=== PATIENT | male | born 1965 | race Caucasian/White ===

== ENCOUNTER 2018-07-11 10:31 | Inpatient (IN) ==
[2018-07-11] MEDS ORDERED: Sodium Chloride 0.9% 1,000 ML PRIMARY IV ONE (10:51)
[2018-07-11] MEDS ORDERED: ceFAZolin Inj 2gm (Premix) 2 GM/50 ML BAG IV ONE (10:54)
[2018-07-11 11:20] LABS: BASOPHILS # (AUTO) 0.03 10*3/UL; BASOPHILS % (AUTO) 0.3 % (0-1); EOSINOPHILS # (AUTO) 0.11 10*3/UL; EOSINOPHILS % (AUTO) 0.9 % (0-8); Hematocrit [HCT] 47.6 % (42.0-52.0); Hemoglobin [HGB] 16.5 g/dL (14.0-18.0); LYMPHOCYTES # (AUTO) 2.14 10*3/uL; MEAN CORPUSCULAR HEMOGLOBIN 32.4 PG (27-31); MEAN CORPUSCULAR HGB CONC 34.7 g/dL (33-37); MEAN CORPUSCULAR VOLUME 93.5 FL (80-90); MEAN PLATELET VOLUME 10.4 FL (7.4-12.2); MONOCYTES # (AUTO) 0.97 10*3/UL (0.3-0.8); MONOCYTES % (AUTO) 8.2 % (5-15); NEUTROPHILS # (AUTO) 8.49 10*3/UL; RED BLOOD COUNT 5.09 10^6/uL (4.70-6.10)
[2018-07-11 11:23] LABS: PLATELET MORPHOLOGY COMMENT NORMAL MORPHOLOGY (NORM); RBC MORPHOLOGY COMMENT NORMAL MORPHOLOGY (NORM); WBC MORPHOLOGY COMMENT NORMAL MORPHOLOGY (NORM)
[2018-07-11 11:34] LABS: BLOOD UREA NITROGEN 15 mg/dL (7-22); BUN/CREATININE RATIO 18.75 (6-20); SERUM ALBUMIN 4.3 g/dL (3.5-4.8)
--- NOTE | 2018-07-11 12:27 | PDOC ---
Lower Extremity Problem HPI - General Chief Complaint: Lower Extremity Problem/Injury Stated Complaint: wounds left foot Date Seen by Provider: 07/11/18 Time Seen by Provider: 10:40 Source: POSITIVE: Patient Exam Limitations: POSITIVE: No limitations Nurse's Notes Reviewed & Considered: Yes - History of Present Illness Initial Comments: The patient is a 53-year-old male. He has a history of diabetes mellitus for the last 8 years with peripheral neuropathy. He takes metformin 500 mg daily. 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 He states that last night when he took off his left boot he noticed that he had a shallow ulcer over the distal sole of this left foot and some blisters to the palmar surface of the left first second and third toes. He has erythema in this area and over the distal third of the foot. He states he does not have a great deal of pain, but he does state that his sensation is prominently reduced in his feet. Patient went to the walk-in clinic this morning, who sent him to the emergency room for further evaluation. Body Location Affected: REPORTS: Lower Extremity (L) Timing: REPORTS: Gradual Duration: <24 hours Severity: Moderate Recent Injury: REPORTS: No Context of Injury: REPORTS: Prolonged Pressure on Ext (Possibly from wearing his boots while working as a marsh buggy operator) Quality: REPORTS: "Pain" (Patient does not have a great deal of pain around the lesions of his foot; history of diabetic neuropathy.) Modifying Factors: REPORTS: Nothing Exacerbates. DENIES: Walking, Movement, Rest, Ice, Nothing Relieves, Other Associated Symptoms: DENIES: Chest Pain, Shortness of Breath, Rapid Heart Rate, Fainting, Other Similar Symptoms Previously: No Recent Care Received: REPORTS: Denies Any Prior Injuries Related to Current Complaint?: No - Patient Home Medications Home Medications: Home Medications metformin 500 mg tablet 500 mg PO QDAY 07/11/18 - Patient Allergies Allergies/Adverse Reactions: Allergies 3 Allergy/AdvReac Type Severity Reaction Status Date / Time Penicillins Allergy RASH Verified 07/11/18 10:40 Past Medical History - heen HEENT History: Cataracts Cardiovascular History: Denies History Respiratory History: Denies History Gastrointestinal History: Denies History Genitourinary History: Denies History Endocrine History: Type 2 Diabetes (diet) Musculoskeletal History: Back Pain, Back Injury, Joint Pain Prosthesis or Implant: No Neurological History: Denies History Blood Disorders: Denies History Psychiatric History: Denies History History of Sexually Transmitted Diseases: No Male Reproductive History: Denies History Cancer History: Denies History In Past Year Been Physically Harmed or Verbally Threatened: No History of MDRO: No History of Other Communicable Diseases: No Tobacco Use: Never Smoker Alcohol Use: Occasionally Type of alcohol normally used: Beer In the Past 12 Months, Have Used or Abuse Any Substance: None Previous Surgical History: Yes Type / Date of Surgery: APPENDECTOMY Anesthesia Reactions: No Malignant Hyperthermia: No Significant Family History: Cancer Past Medical History Reviewed: Reviewed - No Changes ROS - Limitations ROS Limitations: No Limitations Constitution: REPORTS: Denies Symptoms Cardiovascular: REPORTS: Denies Cardiac Symptoms Respiratory: REPORTS: Denies Resp Symptoms Neurological: REPORTS: Denies Neuro Symptoms Gastrointestinal: REPORTS: Denies GI Symptoms Endocrine: REPORTS: Denies Symptoms Musculoskeletal: REPORTS: Other (Diabetic foot ulcers and cellulitis left foot as above; see diagram) Genitourinary: REPORTS: Denies Symptoms Eyes: REPORTS: Denies Symptoms ENT: REPORTS: Denies Symptoms Skin: REPORTS: Other (Diabetic foot ulcer and cellulitis left foot as above; see diagram) Lympathic: REPORTS: Denies Lympathic Symptoms Immunologic: POSITIVE: Denies Symptoms Psychiatric: POSITIVE: Denies Psych Symptoms Lower Ext Problem Exam - General Appearance General Appearance: POSITIVE: Alert, Cooperative, No Acute Distress. NEGATIVE: No Evidence of Trauma - Extremities Lower Extremity: POSITIVE: Tenderness, Swelling, Other (Superficial diabetic foot ulcer distal aspect of the plantar surface of left foot and developing ulcers over the plantar aspects of the left first second and third toes with some dark discoloration of the distal aspects of these toes and erythema distal third of left foot.) Joint Exam: POSITIVE: Joints Normal, Normal ROM, Normal Gait, Normal Weight Bearing Vascular: POSITIVE: No Vascular Compromise, Full Pulses, Equal Pulses - Neuro / Psych Neuro/Psych: POSITIVE: Sensation Normal, Motor Normal, Oriented to Person, Oriented to Place, Oriented to Time, 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 Nml, Pharynx Inspect. Nml, PERRL, EOMI - Respiratory / CVS Respiratory / CVS: POSITIVE: No Respiratory Distress, Breath Sounds Normal, Regular Rate/Rhythm, Heart Sounds Normal Peripheral Pulses: Radial (R): 2+, Radial (L): 2+, Dorsalis-pedis (R): 2+, Dorsalis-pedis (L): 2+ - Abdomen Abdomen: Soft: (All Quadrants), Normal Bowel Sounds: (All Quadrants), Denies Tenderness: (All Quadrants), No Splenomegaly: (All Quadrants), No Hepatomegaly: (All Quadrants), No Guarding: (All Quadrants), No Rebound: (All Quadrants), No Palpable Pulse: (All Quadrants), No Palpabale Mass: (All Quadrants), No Distention: (All Quadrants), No Rigidity: (All Quadrants) Images - Lower Extremities Feet: 1 - Shallow ulcer 2 - Shallow ulcers with blistering 3 - Erythema and swelling 4 - Erythema and swelling Lower Ext Problem Progress - Results Reviewed by me Lab Results Reviewed by Me: Yes (blood cultures drawn) CBC and BMP: 07/11/18 11:00 07/11/18 11:00 Lab Results:: Laboratory Results 3 07/11/18 07/11/18 07/11/18 11:00 11:00 11:00 WBC 11.79 H RBC 5.09 Hgb 16.5 Hct 47.6 MCV 93.5 H MCH 32.4 H MCHC 34.7 RDW Std Deviation 43.0 RDW Coeff of Rasheed 13.0 Plt Count 172 MPV 10.4 Immature Gran % (Auto) 0.4 Neut % (Auto) 72.0 Lymph % (Auto) 18.2 [place] % (Auto) 8.2 Eos % (Auto) 0.9 Baso % (Auto) 0.3 Immature Gran # (Auto) 0.05 Neut # (Auto) 8.49 Lymph # (Auto) 2.14 [place] # (Auto) 0.97 H Eos # (Auto) 0.11 Baso # (Auto) 0.03 WBC Morphology Comment Normal morphology Plt Morphology Comment Normal morphology RBC Morph Comment Normal morphology Sodium 137 Potassium 4.5 Chloride 100 Carbon Dioxide 26 Anion Gap 11 BUN 15 Creatinine 0.8 Estimated GFR > 60 BUN/Creatinine Ratio 18.75 Glucose 271 H Calculated Osmolality 294.0 H Lactic Acid Calcium 9.0 Total Bilirubin 1.0 AST 24 ALT 28 Alkaline Phosphatase 137 H C-Reactive Protein 4.3 H Total Protein 8.2 H Albumin 4.3 Globulin 3.9 Albumin/Globulin Ratio 1.10 L 3 07/11/18 11:11 WBC RBC Hgb Hct MCV MCH MCHC RDW Std Deviation RDW Coeff of Rasheed Plt Count MPV Immature Gran % (Auto) Neut % (Auto) Lymph % (Auto) [place] % (Auto) Eos % (Auto) Baso % (Auto) Immature Gran # (Auto) Neut # (Auto) Lymph # (Auto) [place] # (Auto) Eos # (Auto) Baso # (Auto) WBC Morphology Comment Plt Morphology Comment RBC Morph Comment Sodium Potassium Chloride Carbon Dioxide Anion Gap BUN Creatinine Estimated GFR BUN/Creatinine Ratio Glucose Calculated Osmolality Lactic Acid 1.3 Calcium Total Bilirubin AST ALT Alkaline Phosphatase C-Reactive Protein Total Protein Albumin Globulin Albumin/Globulin Ratio - Patient's Progress Pain Medication Addressed: POSITIVE: Patient Refused School/Work Release Addressed: POSITIVE: Not Applicable Re-Examine Time: 12:15 Re-Examine Comment: Patient advised that his interest would best be served with hospitalization. Patient given 2 g of Ancef IV in the emergency room. Case discussed with hospitalist. Status: POSITIVE: Unchanged, Re-Examined - Consult Counseled: POSITIVE: Patient, RE: Lab Results, RE: DX, RE: Need for F/U Patient Care Time - Estimated PCT Patient Care Time (In Minutes): 50 Vital Signs - Recent Vital Signs Vital Signs: Vital Signs (Last 8 hours) Temp Pulse Resp BP Pulse Ox 07/11/18 10:31 98.8 F 89 16 145/96 95 - VS Reviewed Vital Signs Reviewed: Yes Discharge Clinical Impression: Foot ulcer due to secondary DM, Cellulitis and abscess of foot Condition: Stable Follow Up With: NONE,NONE [Primary Care Provider] - Date Decision to Admit to Inpatient: 07/11/18 Time Decision to Admit to Inpatient: 12:05
[2018-07-11 12:37] LABS: HEMOGLOBIN A1C 9.81 % (4.2-6.0)
[2018-07-11] MEDS ORDERED: Cefepime Inj 2 GM in Sodium Chloride 0.9% 100 ML IV SCH (12:45)
--- NOTE | 2018-07-11 12:48 | PDOC ---
HPI - History of Present Illness History of Present Illness: This very nice 53-year-old gentleman with past medical history significant for diabetes for the last 8 years and peripheral neuropathy [place]. 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 he states that last night when he took his boot off the noted ulcers on the left side of his foot underneath his foot on the palmar surface and second and third toes and first toes with some redness and discoloration no pain Past Medical History Medical History: Diabetes Tobacco Use: Never Smoker Do you dip or chew tobacco: Yes In the Past 12 Months, Have Used or Abuse Any of the Following Substance: None Alcohol Use: None Medication / Allergies Home Medications: Home Medications 3 Medication Instructions Recorded Confirmed Type metformin 500 mg tablet 500 mg PO QDAY 07/11/18 07/11/18 History Allergies/Adverse Reactions: Allergies 3 Allergy/AdvReac Type Severity Reaction Status Date / Time Penicillins Allergy RASH Verified 07/11/18 10:40 Review of Systems - Review of Systems All Systems: Reviewed & No Additional Complaints Except as Stated - Constitutional Constitutional: DENIES: Weight Gain, Fever / Chills, Night Sweats - Respiratory Respiratory: DENIES: Negative System Review, Cough, Sputum, Dyspnea At Rest, Dyspnea with Exertion, Pleuritic Pain, Hemoptysis, Wheezing, Other, See HPI - Cardiovascular Cardiovascular: DENIES: Negative System Review, Chest Pain, Edema, Syncope, Palpitations, Orthopnea, Paroxysmal Nocturnal Dyspnea, Other, See HPI - Gastrointestinal Gastrointestinal / Abdominal: DENIES: Negative System Review, Nausea, Vomiting, Diarrhea, Constipation, Abdominal Pain, Bloody Stool, Poor Appetite, Heartburn, Regurgitation, Bloating, Lactose Intolerance, Melena, Bright Red Blood per Rectum, Other, See HPI Exam - Vitals Vital Signs: Vital Signs Temperature 98.8 F Temperature Source Temporal Artery Scan Pulse Rate [Pulse Oximeter 89 Right] Respiratory Rate 16 Blood Pressure [Left Arm] 145/96 Pulse Ox 95 Oxygen Delivery Method Room Air Height 5 ft 9 in Weight 221 lb - General General Appearance: No Acute Distress, Cooperative - Head Head Exam: Normal Inspection, Normocephalic, Atraumatic - Eye Eye Exam: POSITIVE: Normal Appearance, PERRL, EOMI, No Scleral Icterus - Neck Neck Exam: Normal Inspection, Full ROM, No Tenderness, No Lymphadenopathy, No Thyromegaly, JVP is not Raised - Respiratory Respiratory Exam: POSITIVE: Clear to Auscultation - Bilaterally, Breathing Non Labored, Normal To Percussion, Normal to Percussion and Palpation - Cardiovascular Cardiovascular Exam: POSITIVE: RRR, No Murmur, No Clicks, No Gallops, No Rubs, PMI Non-Displaced - GI/Abdominal GI/Abdominal Exam: POSITIVE: Normal Bowel Sounds, Non Tender, Non Distended, Soft, No Masses, No Hepatomegaly, No Splenomegaly, No Organomegaly - Extremities Additional Extremities Exam Details: Left foot plantar area big blister which was peeled off it looks like first second and third toe with erythema and some discoloration - Neurological Neurological Exam: POSITIVE: Alert, Oriented x 3, No Facial Droop, Speech Intact / Clear Results - Labs CBC and BMP: 07/11/18 11:00 07/11/18 11:00 Assessment and Plan - Patient Problems (1) Foot ulcer due to secondary DM Current Visit: Yes Status: Acute Comment: We'll start patient on cefepime and vancomycin we need to cover Pseudomonas blood cultures were obtained he did receive 2 g of Ancef from the ER physician did order a sedimentation rate also x-rays of his foot and consult with Dr. Shane orthopedic surgery I spoke to him on the phone personally patient has good the pedal pulses Code(s): E13.621 - Other specified diabetes mellitus with foot ulcer; L97.509 - Non-pressure chronic ulcer of other part of unspecified foot with unspecified severity
[2018-07-11] MEDS ORDERED: DEXTROSE 50%-WATER SYRINGE 50 ML SYRINGE IVP PRN (12:55)
[2018-07-11] MEDS ORDERED: DEXTROSE 31 GM GEL PO PRN (12:55)
[2018-07-11] MEDS ORDERED: Glucagon Inj Vial 1 MG/ML VIAL IM PRN (12:55)
[2018-07-11] MEDS ORDERED: CALCIUM CARBONATE 500 MG (TUMS) CHEWABLE TABLET PO PRN (12:55)
[2018-07-11] MEDS ORDERED: DOCUSATE 100 MG CAPSULE PO PRN (12:55)
[2018-07-11] MEDS ORDERED: LIDOCAINE W/ SODIUM BICARB 0.5 ML SYR SUBD PRN (12:55)
[2018-07-11] MEDS ORDERED: ONDANSETRON 4 MG/2 ML VIAL IVP PRN (12:55)
[2018-07-11] MEDS ORDERED: Insulin Sliding Scale Protocol SUBCUT PRN (12:55)
[2018-07-11] MEDS ORDERED: MORPHINE SULFATE 2 MG/1 ML IVP PRN (12:55)
[2018-07-11] MEDS ORDERED: ACETAMINOPHEN 325 MG TABLET PO PRN (12:55)
[2018-07-11] MEDS: Lactated Ringers 1,000 ML PRIMARY IV SCH ×2 (13:40→20:34)
[2018-07-11] MEDS: HEPARIN 5000 UNIT/1 ML SUBCUT SCH ×2 (13:40→20:30)
--- NOTE | 2018-07-11 13:40 | DI ---
EXAM: XR Left Foot Complete, 3 or More Views CLINICAL HISTORY: Patient states sudden onset infection to the left foot. Swelling, redness, and peeling to the entire foot and ankle. There is a 2 inch oozing sore across the distal plantar surface of the foot and a black sore on the plantar surface of the 1st toe. 3 images. No priors.: TECHNIQUE: Frontal, lateral and oblique views of the left foot. COMPARISON: No relevant prior studies available. FINDINGS: Bones/joints: No evidence of osteomyelitis. Osseous structures intact. No acute fracture. No dislocation. Soft tissues: Soft tissue swelling. No radiopaque foreign body. IMPRESSION: 1. Soft tissue swelling. 2. No evidence of osteomyelitis. Osseous structures intact.
--- NOTE | 2018-07-11 14:13 | CONSULT ---
Consult Note - Consult Consult Date: 07/11/18 Reason for Consult: Orthopedic Consult Requesting Physician: Dr. Salas Primary Care Provider: NONE NONE - History of Present Illness History of Present Illness: Patient is a 53-year-old male came into the emergency room this morning when he took off his shoe last night and apparently with a sock noted that he had redness swelling of the foot and toes and had pulled off some skin on the bottom aspect of his foot apparently patient is a [id number] diabetic who does not check his blood sugars and does not recall the last time he checked them nor what level they usually run. Patient states he has decreased sensation on the distal aspect of the lower extremity about the mid 3/ 4 foot going distal bilaterally symmetric stocking glove distribution. Patient states he does not check his feet on a regular basis. Patient denies fevers chills or night sweats. Patient denies any shortness of breath or chest pain. He also denies any appetite changes. Past Medical History Medical History: Diabetes Tobacco Use: Never Smoker Do you dip or chew tobacco: Yes In the Past 12 Months, Have Used or Abuse Any of the Following Substance: None Alcohol Use: None Medication / Allergies Home Medications: Home Medications 3 Medication Instructions Recorded Confirmed Type metformin 500 mg tablet 500 mg PO QDAY 07/11/18 07/11/18 History Allergies/Adverse Reactions: Allergies 3 Allergy/AdvReac Type Severity Reaction Status Date / Time Penicillins Allergy RASH Verified 07/11/18 13:03 Exam - Vitals Vital Signs: Vital Signs Temperature 97.6 F Temperature Source Temporal Artery Scan Pulse Rate [Pulse Oximeter 91 Right] Pulse Rate 90 Respiratory Rate 18 Blood Pressure [Left Arm] 149/88 Blood Pressure 142/88 Pulse Ox 97 Oxygen Delivery Method Room Air Height 5 ft 9 in Weight 100.062 kg Examination shows that the patient is a well-developed well-nourished male in no apparent distress he is alert and oriented 3. Patient is generally coordinated with appropriate affect. Examination of the left foot show that the patient has some redness to the toes including the great toe to a mild extent but more so the second and third and a portion of the fourth toe with some deep discoloration on the tips of the toes on the great toe second third and portion of the fourth also has similar changes in the sole in the area of the ball of the foot. There is absent skin with superficial dermal layer absent about 7 cm x 3 cm. There is still skin covering tissue are going more proximally to about the midportion of the arch with a little discoloration to the tissues on the plantar aspect. This is mostly a faint blue hue. Several of the small blisters over the toe region particularly when on the great toe at the tip. He has no pain with palpation diffusely he complains of decreased sensation in the feet about mid to upper third of the foot distally seems to be symmetric with the other side there is no active issues with the other foot. He has good motion of the toes foot and ankle otherwise. A mild amount of swelling. The area where the tissue is red this blanches well and has good refill. He has good pulses with brisk refill. I don't feel any active fluctuance of the current time. Radiographs of the foot show no evidence of fractures dislocations is no active gas in the soft tissues or evidence of osteomyelitis. Laboratory Results 07/11/18 07/11/18 07/11/18 Range/Units 11:00 11:00 11:00 WBC 11.79 H (4.8-10.8) 10^3/uL RBC 5.09 (4.70-6.10) 10^6/uL Hgb 16.5 (14.0-18.0) g/dL Hct 47.6 (42.0-52.0) % MCV 93.5 H (80-90) FL MCH 32.4 H (27-31) PG MCHC 34.7 (33-37) g/dL RDW Std Deviation 43.0 (39-50) fL RDW Coeff of Rasheed 13.0 (11.5-14.5) % Plt Count 172 (140-350) 10*3/uL MPV 10.4 (7.4-12.2) FL Immature Gran % (Auto) 0.4 (0-5) % Neut % (Auto) 72.0 (50-80) % Lymph % (Auto) 18.2 (10-50) % [place] % (Auto) 8.2 (5-15) % Eos % (Auto) 0.9 (0-8) % Baso % (Auto) 0.3 (0-1) % Immature Gran # (Auto) 0.05 10*3/UL Neut # (Auto) 8.49 10*3/UL Lymph # (Auto) 2.14 10*3/uL [place] # (Auto) 0.97 H (0.3-0.8) 10*3/UL Eos # (Auto) 0.11 10*3/UL Baso # (Auto) 0.03 10*3/UL WBC Morphology Comment Normal morphology (NORM) Plt Morphology Comment Normal morphology (NORM) RBC Morph Comment Normal morphology (NORM) Sodium 137 (135-145) meq/L Potassium 4.5 (3.8-5.2) meq/L Chloride 100 (98-112) meq/L Carbon Dioxide 26 (23-33) meq/L Anion Gap 11 (5-20) BUN 15 (7-22) mg/dL Creatinine 0.8 (0.70-1.50) mg/dL Estimated GFR > 60 (>60 ml/min/1.73m(2)) BUN/Creatinine Ratio 18.75 (6-20) Glucose 271 H (78-110) mg/dL Mean Blood Glucose mg/dL Hemoglobin A1c (4.2-6.0) % Calculated Osmolality 294.0 H (267-292) mOsm/kg Lactic Acid (0.70-2.10) MMOL/L Calcium 9.0 (8.7-10.7) mg/dL Total Bilirubin 1.0 (0.3-1.2) mg/dL AST 24 (21-57) IU/L ALT 28 (21-72) IU/L Alkaline Phosphatase 137 H (38-126) IU/L Troponin I (< 0.040) ng/mL C-Reactive Protein 4.3 H (0.0-0.9) mg/dL Total Protein 8.2 H (6.1-8.0) g/dL Albumin 4.3 (3.5-4.8) g/dL Globulin 3.9 (2.50-4.10) g/dL Albumin/Globulin Ratio 1.10 L (1.3-2.0) mg/g 07/11/18 07/11/18 07/11/18 Range/Units 11:00 11:00 11:11 WBC (4.8-10.8) 10^3/uL RBC (4.70-6.10) 10^6/uL Hgb (14.0-18.0) g/dL Hct (42.0-52.0) % MCV (80-90) FL MCH (27-31) PG MCHC (33-37) g/dL RDW Std Deviation (39-50) fL RDW Coeff of Rasheed (11.5-14.5) % Plt Count (140-350) 10*3/uL MPV (7.4-12.2) FL Immature Gran % (Auto) (0-5) % Neut % (Auto) (50-80) % Lymph % (Auto) (10-50) % [place] % (Auto) (5-15) % Eos % (Auto) (0-8) % Baso % (Auto) (0-1) % Immature Gran # (Auto) 10*3/UL Neut # (Auto) 10*3/UL Lymph # (Auto) 10*3/uL [place] # (Auto) (0.3-0.8) 10*3/UL Eos # (Auto) 10*3/UL Baso # (Auto) 10*3/UL WBC Morphology Comment (NORM) Plt Morphology Comment (NORM) RBC Morph Comment (NORM) Sodium (135-145) meq/L Potassium (3.8-5.2) meq/L Chloride (98-112) meq/L Carbon Dioxide (23-33) meq/L Anion Gap (5-20) BUN (7-22) mg/dL Creatinine (0.70-1.50) mg/dL Estimated GFR (>60 ml/min/1.73m(2)) BUN/Creatinine Ratio (6-20) Glucose (78-110) mg/dL Mean Blood Glucose 240.673 mg/dL Hemoglobin A1c 9.81 H (4.2-6.0) % Calculated Osmolality (267-292) mOsm/kg Lactic Acid 1.3 (0.70-2.10) MMOL/L Calcium (8.7-10.7) mg/dL Total Bilirubin (0.3-1.2) mg/dL AST (21-57) IU/L ALT (21-72) IU/L Alkaline Phosphatase (38-126) IU/L Troponin I < 0.012 (< 0.040) ng/mL C-Reactive Protein (0.0-0.9) mg/dL Total Protein (6.1-8.0) g/dL Albumin (3.5-4.8) g/dL Globulin (2.50-4.10) g/dL Albumin/Globulin Ratio (1.3-2.0) mg/g Results - Labs CBC and BMP: 07/11/18 11:00 07/11/18 11:00 Assessment and Plan - Assessment / Plan Additional Assessment/Plan Details: Impression: [id number] diabetes poorly controlled Blister and probable early ulcer formation left foot diffusely in various areas. Plan: Patient was started on IV antibiotics to have appropriate coverage for foot bacteria and multi-microbial sources. I think keeping weight off the foot and keeping a light dressing on this and begin very conservative wound care at the current time would be helpful to allow this to declare itself. Discussed with the patient the possibility of progression of this and need for some advances surgery to include potential debridement or amputation. We discussed the patient's current condition and clinical findings as it pertains to the current situation. Surgical versus nonsurgical options risks and benefits were discussed and reviewed. Options moving forward include but are not limited to continued choice to live with their current condition; evaluate their current condition further with imaging studies and/or diagnostic testing, etc.; treat problem/problems with surgical versus nonsurgical methods. The patient demonstrates a clear understanding of our discussion. All questions were answered. Surgical versus nonsurgical options risks and benefits were Discussed and reviewed. Risks include but are not limited to bleeding, infection, neurovascular damage, wound problems, deep vein thromboses, pulmonary embolism, need for further surgery, and loss of life and limb. Certainly any surgical procedure may not improve symptoms and potentially could makes symptoms worse. There are no guarantees implied with the discussion of surgical treatment. All questions were answered and the patient wishes to proceed with surgical treatment. - Time/Visit Time Spent With Patient: Greater Than 35 Mint[address]
[2018-07-11] MEDS: Insulin Lispro Flexpen 300 UNIT/3 ML INSULN.PEN SUBCUT SCH ×2 (14:22→16:31)
[2018-07-11] MEDS: Cefepime Inj 2 GM in Sodium Chloride 0.9% 100 ML IV SCH (14:30)
[2018-07-12] MEDS: Cefepime Inj 2 GM in Sodium Chloride 0.9% 100 ML IV SCH ×2 (01:42→14:07)
[2018-07-12] MEDS: HEPARIN 5000 UNIT/1 ML SUBCUT SCH ×3 (04:09→21:27)
[2018-07-12 04:41] LABS: BASOPHILS # (AUTO) 0.02 10*3/UL; BASOPHILS % (AUTO) 0.3 % (0-1); EOSINOPHILS # (AUTO) 0.19 10*3/UL; EOSINOPHILS % (AUTO) 2.6 % (0-8); Hematocrit [HCT] 42.6 % (42.0-52.0); Hemoglobin [HGB] 14.8 g/dL (14.0-18.0); MEAN CORPUSCULAR HEMOGLOBIN 32.3 PG (27-31); MEAN CORPUSCULAR HGB CONC 34.7 g/dL (33-37); MEAN PLATELET VOLUME 10.5 FL (7.4-12.2); MONOCYTES # (AUTO) 0.69 10*3/UL (0.3-0.8); MONOCYTES % (AUTO) 9.4 % (5-15); NEUTROPHILS % (AUTO) 58.7 % (50-80); PLATELET MORPHOLOGY COMMENT NORMAL MORPHOLOGY (NORM); RBC MORPHOLOGY COMMENT NORMAL MORPHOLOGY (NORM); RED BLOOD COUNT 4.58 10^6/uL (4.70-6.10); WBC MORPHOLOGY COMMENT NORMAL MORPHOLOGY (NORM)
[2018-07-12] MEDS: Insulin Lispro Flexpen 300 UNIT/3 ML INSULN.PEN SUBCUT SCH ×3 (07:00→15:55)
[2018-07-12] MEDS: Lactated Ringers 1,000 ML PRIMARY IV SCH (08:26)
[2018-07-12] MEDS ORDERED: metFORMIN 500 MG TABLET PO SCH (09:00)
--- NOTE | 2018-07-12 09:35 | ORTHO.PROG ---
Last Taken Vital Signs: Vital Signs - Last Taken Temperature 98 F 07/12/18 06:25 Pulse Rate 80 07/12/18 06:25 Respiratory Rate 18 07/12/18 06:25 Blood Pressure 150/81 07/12/18 06:25 Pulse Ox 94 07/12/18 06:25 Subjective: Patient states he has no pain in the left foot at the current time feels is doing better Objective: Examination of the foot shows that he still has some redness along the lesser toes and blisters on the great toe and on the plantar aspect of the foot though tissue looks healthier marginally. Laboratory Results 07/11/18 07/11/18 07/11/18 Range/Units 11:00 11:00 11:00 WBC 11.79 H (4.8-10.8) 10^3/uL RBC 5.09 (4.70-6.10) 10^6/uL Hgb 16.5 (14.0-18.0) g/dL Hct 47.6 (42.0-52.0) % MCV 93.5 H (80-90) FL MCH 32.4 H (27-31) PG MCHC 34.7 (33-37) g/dL RDW Std Deviation 43.0 (39-50) fL RDW Coeff of Rasheed 13.0 (11.5-14.5) % Plt Count 172 (140-350) 10*3/uL MPV 10.4 (7.4-12.2) FL Immature Gran % (Auto) 0.4 (0-5) % Neut % (Auto) 72.0 (50-80) % Lymph % (Auto) 18.2 (10-50) % [place] % (Auto) 8.2 (5-15) % Eos % (Auto) 0.9 (0-8) % Baso % (Auto) 0.3 (0-1) % Immature Gran # (Auto) 0.05 10*3/UL Neut # (Auto) 8.49 10*3/UL Lymph # (Auto) 2.14 10*3/uL [place] # (Auto) 0.97 H (0.3-0.8) 10*3/UL Eos # (Auto) 0.11 10*3/UL Baso # (Auto) 0.03 10*3/UL WBC Morphology Comment Normal morphology (NORM) Plt Morphology Comment Normal morphology (NORM) RBC Morph Comment Normal morphology (NORM) Sodium 137 (135-145) meq/L Potassium 4.5 (3.8-5.2) meq/L Chloride 100 (98-112) meq/L Carbon Dioxide 26 (23-33) meq/L Anion Gap 11 (5-20) BUN 15 (7-22) mg/dL Creatinine 0.8 (0.70-1.50) mg/dL Estimated GFR > 60 (>60 ml/min/1.73m(2)) BUN/Creatinine Ratio 18.75 (6-20) Glucose 271 H (78-110) mg/dL Mean Blood Glucose mg/dL Hemoglobin A1c (4.2-6.0) % Calculated Osmolality 294.0 H (267-292) mOsm/kg Lactic Acid (0.70-2.10) MMOL/L Calcium 9.0 (8.7-10.7) mg/dL Total Bilirubin 1.0 (0.3-1.2) mg/dL AST 24 (21-57) IU/L ALT 28 (21-72) IU/L Alkaline Phosphatase 137 H (38-126) IU/L Troponin I (< 0.040) ng/mL C-Reactive Protein 4.3 H (0.0-0.9) mg/dL Total Protein 8.2 H (6.1-8.0) g/dL Albumin 4.3 (3.5-4.8) g/dL Globulin 3.9 (2.50-4.10) g/dL Albumin/Globulin Ratio 1.10 L (1.3-2.0) mg/g 07/11/18 07/11/18 07/11/18 Range/Units 11:00 11:00 11:11 WBC (4.8-10.8) 10^3/uL RBC (4.70-6.10) 10^6/uL Hgb (14.0-18.0) g/dL Hct (42.0-52.0) % MCV (80-90) FL MCH (27-31) PG MCHC (33-37) g/dL RDW Std Deviation (39-50) fL RDW Coeff of Rasheed (11.5-14.5) % Plt Count (140-350) 10*3/uL MPV (7.4-12.2) FL Immature Gran % (Auto) (0-5) % Neut % (Auto) (50-80) % Lymph % (Auto) (10-50) % [place] % (Auto) (5-15) % Eos % (Auto) (0-8) % Baso % (Auto) (0-1) % Immature Gran # (Auto) 10*3/UL Neut # (Auto) 10*3/UL Lymph # (Auto) 10*3/uL [place] # (Auto) (0.3-0.8) 10*3/UL Eos # (Auto) 10*3/UL Baso # (Auto) 10*3/UL WBC Morphology Comment (NORM) Plt Morphology Comment (NORM) RBC Morph Comment (NORM) Sodium (135-145) meq/L Potassium (3.8-5.2) meq/L Chloride (98-112) meq/L Carbon Dioxide (23-33) meq/L Anion Gap (5-20) BUN (7-22) mg/dL Creatinine (0.70-1.50) mg/dL Estimated GFR (>60 ml/min/1.73m(2)) BUN/Creatinine Ratio (6-20) Glucose (78-110) mg/dL Mean Blood Glucose 240.673 mg/dL Hemoglobin A1c 9.81 H (4.2-6.0) % Calculated Osmolality (267-292) mOsm/kg Lactic Acid 1.3 (0.70-2.10) MMOL/L Calcium (8.7-10.7) mg/dL Total Bilirubin (0.3-1.2) mg/dL AST (21-57) IU/L ALT (21-72) IU/L Alkaline Phosphatase (38-126) IU/L Troponin I < 0.012 (< 0.040) ng/mL C-Reactive Protein (0.0-0.9) mg/dL Total Protein (6.1-8.0) g/dL Albumin (3.5-4.8) g/dL Globulin (2.50-4.10) g/dL Albumin/Globulin Ratio (1.3-2.0) mg/g 07/12/18 Range/Units 04:09 WBC 7.32 (4.8-10.8) 10^3/uL RBC 4.58 L (4.70-6.10) 10^6/uL Hgb 14.8 (14.0-18.0) g/dL Hct 42.6 (42.0-52.0) % MCV 93.0 H (80-90) FL MCH 32.3 H (27-31) PG MCHC 34.7 (33-37) g/dL RDW Std Deviation 42.1 (39-50) fL RDW Coeff of Rasheed 12.8 (11.5-14.5) % Plt Count 175 (140-350) 10*3/uL MPV 10.5 (7.4-12.2) FL Immature Gran % (Auto) 0.3 (0-5) % Neut % (Auto) 58.7 (50-80) % Lymph % (Auto) 28.7 (10-50) % [place] % (Auto) 9.4 (5-15) % Eos % (Auto) 2.6 (0-8) % Baso % (Auto) 0.3 (0-1) % Immature Gran # (Auto) 0.02 10*3/UL Neut # (Auto) 4.30 10*3/UL Lymph # (Auto) 2.10 10*3/uL [place] # (Auto) 0.69 (0.3-0.8) 10*3/UL Eos # (Auto) 0.19 10*3/UL Baso # (Auto) 0.02 10*3/UL WBC Morphology Comment Normal morphology (NORM) Plt Morphology Comment Normal morphology (NORM) RBC Morph Comment Normal morphology (NORM) Sodium (135-145) meq/L Potassium (3.8-5.2) meq/L Chloride (98-112) meq/L Carbon Dioxide (23-33) meq/L Anion Gap (5-20) BUN (7-22) mg/dL Creatinine (0.70-1.50) mg/dL Estimated GFR (>60 ml/min/1.73m(2)) BUN/Creatinine Ratio (6-20) Glucose (78-110) mg/dL Mean Blood Glucose mg/dL Hemoglobin A1c (4.2-6.0) % Calculated Osmolality (267-292) mOsm/kg Lactic Acid (0.70-2.10) MMOL/L Calcium (8.7-10.7) mg/dL Total Bilirubin (0.3-1.2) mg/dL AST (21-57) IU/L ALT (21-72) IU/L Alkaline Phosphatase (38-126) IU/L Troponin I (< 0.040) ng/mL C-Reactive Protein (0.0-0.9) mg/dL Total Protein (6.1-8.0) g/dL Albumin (3.5-4.8) g/dL Globulin (2.50-4.10) g/dL Albumin/Globulin Ratio (1.3-2.0) mg/g Vital Signs (24 hrs) Temp Pulse Pulse Pulse Resp BP BP 07/12/18 06:25 98 F 80 18 07/12/18 05:00 97.3 F 78 20 07/12/18 01:00 97.7 F 80 16 07/11/18 20:37 97.6 F 85 16 07/11/18 16:17 97.4 F 83 16 07/11/18 13:00 97.6 F 91 18 149/88 07/11/18 12:55 98.2 F 90 15 142/88 07/11/18 10:31 98.8 F 89 16 145/96 BP Pulse Ox 07/12/18 06:25 150/81 94 07/12/18 05:00 158/91 95 07/12/18 01:00 135/87 94 07/11/18 20:37 146/85 96 07/11/18 16:17 162/97 97 07/11/18 13:00 97 07/11/18 12:55 95 07/11/18 10:31 95 Bedside Blood Glucose Finger Stick Blood Glucose 232 Finger Stick Blood Glucose 269 Bedside Blood Glucose - Intervention Bedside Blood Glucose Start: 07/11/18 12:55 Freq: AC HS Status: Active Protocol: Activity Type Activity Date Activity User E-Sign Co-Sign Detail Recorded Client Recorded Date Recorded By Document 07/11/18 16:00 [id number] 07/11/18 16:17 [id number] Document 07/11/18 20:38 [id number] 07/11/18 20:38 [id number] Document 07/12/18 06:25 [id number] 07/12/18 06:30 [id number] 0807/11/18 07/12/18 16:00 20:38 06:25 Blood Glucose Assessment Bedside Glucometer Cleaned Per Policy Yes Yes Yes Prior to Patient Use Bedside Blood Glucose (80-110) 269 H 232 H Action Taken Nurse Notified Nurse Notified Blood Glucose Result Reported To ( reported to VANNA Chacon 07/11/18 07/12/18 include date/time) melanie 07/11/[id number] reported to rn 2408 bibi No ascending lymphangitis. Assessment: Left foot diabetic ulcers and cellulitis extent unclear at the current time, declaring itself. Suspect some degree of full thickness soft tissue injury Plan: Continue IV antibiotics, physical therapy for diabetic care, limited weightbearing on left lower extremity with continued dressing and protection. Strict control of blood sugars
[2018-07-12] MEDS ORDERED: metFORMIN ER 500 MG TABLET PO SCH (09:45)
--- NOTE | 2018-07-12 11:27 | PDOC(PROG) ---
Interval History: Patient feels much better swelling is going down on his left foot is all wrapped by wound care and will not unwrap it looked at with those note things are improving hopefully will not need surgery Objective : Data - Labs CBC and BMP: 07/12/18 04:09 07/11/18 11:00 Objective : Exam - Respiratory Respiratory Exam: Clear to Auscultation - Bilaterally, Breathing Non Labored, Normal To Percussion, Normal to Percussion and Palpation - Cardiovascular Cardiovascular Exam: RRR, No Murmur, No Clicks, No Gallops, No Rubs, PMI Non- Displaced - GI/Abdominal GI/Abdominal Exam: Normal Bowel Sounds, Non Tender, Non Distended, Soft, No Masses, No Hepatomegaly, No Splenomegaly, No Organomegaly Assessment and Plan - Patient Problems (1) Foot ulcer due to secondary DM Current Visit: Yes Status: Acute Comment: Continue Vanco and cefepime patient is allergic to penicillin cefepime will be covering pseudomonas. Micro-nothing back yet blood cultures are pending I really appreciate or sows help in this case we'll keep on following to see how her progress is made with his foot hopefully will not need surgery Code(s): E13.621 - Other specified diabetes mellitus with foot ulcer; L97.509 - Non-pressure chronic ulcer of other part of unspecified foot with unspecified severity (2) Diabetes Current Visit: Yes Status: Acute Comment: We will increase his metformin to 1500 I will given 1000 and Glucophage XRT night also patient has sliding scale with the sugars before meals and at bedtime I will add 3 units of Lantus this evening patient's blood sugar this morning was around 220 I will try to keep a tight sugar control considering his diabetic foot ulcer patient will like to stay off insulin if at all possible. I told him that I would the started insulin in the hospital and increased the Glucophage to keep tighter control on his the glucose is low carb diet and I instructed him of the low sugar and carb intake Code(s): E11.9 - Type 2 diabetes mellitus without complications Qualifiers: Diabetes mellitus complication status: with skin complications Diabetes mellitus complication detail: with foot ulcer
[2018-07-12] MEDS ORDERED: Insulin Glargine SoloStar Inj 100 UNIT/ML INSULN.PEN SUBCUT SCH (21:00)
[2018-07-12] MEDS: metFORMIN ER 500 MG TABLET PO SCH (21:27)
[2018-07-13] MEDS: Cefepime Inj 2 GM in Sodium Chloride 0.9% 100 ML IV SCH ×2 (01:33→13:02)
[2018-07-13] MEDS: HEPARIN 5000 UNIT/1 ML SUBCUT SCH ×3 (03:57→21:07)
[2018-07-13] MEDS: Insulin Lispro Flexpen 300 UNIT/3 ML INSULN.PEN SUBCUT SCH ×3 (06:54→16:11)
--- NOTE | 2018-07-13 07:37 | PDOC(PROG) ---
Interval History: Doing well feels much better sugars better controlled Objective : Data - Labs CBC and BMP: 07/12/18 04:09 07/11/18 11:00 Objective : Exam - General General Appearance: Cooperative - Respiratory Respiratory Exam: Clear to Auscultation - Bilaterally, Breathing Non Labored, Normal To Percussion, Normal to Percussion and Palpation - Cardiovascular Cardiovascular Exam: RRR, No Murmur, No Clicks, No Gallops, No Rubs, PMI Non- Displaced - GI/Abdominal GI/Abdominal Exam: Normal Bowel Sounds, Non Tender, Non Distended, Soft, No Masses, No Hepatomegaly, No Splenomegaly, No Organomegaly - Extremities Additional Extremities Exam Details: Remains wrapped no pain Assessment and Plan - Patient Problems (1) Foot ulcer due to secondary DM Current Visit: Yes Status: Acute Comment: Continue IV antibiotics and wound care cultures negative thus far Code(s): E13.621 - Other specified diabetes mellitus with foot ulcer; L97.509 - Non-pressure chronic ulcer of other part of unspecified foot with unspecified severity (2) Diabetes Current Visit: Yes Status: Acute Comment: Sugars this morning 197 continue metformin at an increased dose plus Lantus at night 3 units Code(s): E11.9 - Type 2 diabetes mellitus without complications Qualifiers: Diabetes mellitus complication status: with skin complications Diabetes mellitus complication detail: with foot ulcer
[2018-07-13] MEDS: metFORMIN ER 500 MG TABLET PO SCH ×2 (09:21→21:07)
--- NOTE | 2018-07-13 11:14 | PT.PROG ---
Progress Note Progress Note: S: Pt. states he is doing well. Has no c/o pain or discomfort. Feels his wound is improving. O: Treatment consisted of removal of soiled dressing. Then cleansed LE with warm wash cloth and soap. Dr. Shane then came to inspect the wound. Wound was then redressed with calcium alginate over wound on pad of foot. Calmoseptine placed around wound edges. Toes then intertwined with unna boot and covered with kerlix and coban. A: Pt's toes do present with purple, suspected DTI tissue on digits 1,2,3,5. Wound has minimal drainage noted. the drainage does present dhiraj in color with no odor at time of dressing. Will continue to watch these areas closely and monitor. P: Continue per POC to assist with wound healing. Sowmya Galaviz, PHP DEVELOPER
--- NOTE | 2018-07-13 11:23 | PTI REPORT ---
Thank you for the referral of Albino Chapa. He was seen on 07/12/18 for an inpatient evaluation secondary to an open wound/wound care. SUBJECTIVE: The patient is a 53-year-old male. The patient reports that he lives in [place] but lives here and doctors through the OR. The patient is diabetic and he does not control his Diabetes as much as he feels like he should. The patient reports that he has worn some boots for two weeks and the other day he noticed that his sock was sticking to the bottom of his foot and he noticed that he had an open wound and blisters. The patient reports he is not in any pain to the touch. The therapist spoke with Dr. Shane and the patient is to be non weight-bearing at this time to relieves pressure on the foot. The therapist recommends a diabetic shoe. PAST MEDICAL HISTORY: Past medical history can be found in the patient's medical record. OBJECTIVE FINDINGS: The patient was seen in his bed. Nursing okayed treatment prior to PT. The patient demonstrates with two wounds on the plantar surface of his foot. One wound measures 4 centimeters long x 2.8 centimeters wide and presents with redness and minimal drainage. The wound is very superficial. The other wound is inferior on the plantar surface of the food from the first wound. The second wound measures 7.5 centimeters long x 2.5 centimeters wide x 0.1 centimeters deep. The wound demonstrates moderate drainage. The patient had redness around his toes with blisters on multiple toes, especially the great toe which presented with two blisters. There are some dark black areas on the tips of the toes. The patient has a wound on his second toe that measures 0.3 centimeters long x 0.3 centimeters wide x 0.1 centimeters deep with minimal drainage. LETY was 1.2. ASSESSMENT: The patient is a 53-year-old male that presents with multiple open wounds on left lower extremity with varying drainages and presentations. The patient would benefit from skilled therapy in order to receive wound care and to improve wound healing. Problem List: Open wounds Short-Term Goals: To be met by discharge from inpatient: Patient will demonstrate 100% wound closure. Long-Term Goals: To be met following discharge from inpatient: Patient will return home and will be able to perform all functional activities at prior level of function. TREATMENT PLAN: Patient will be seen PRN during the week and one time per day over the weekend as an inpatient for wound care. INITIAL TREATMENT: Treatment today consisted of the initial evaluation. The wound was cleansed with Ph Balance cleanser, Calcium Alginate was placed on the bottom of the foot , Calmoseptine was placed around the wound border, a Telfa was placed on top of the Alginate, and his left lower extremity was wrapped with Unna-boot, Kerlix, and Coban. Nursing was informed and was told to monitor for tightness and circulation. The patient was left in bed with call light within reach. [facility]
--- NOTE | 2018-07-13 11:33 | ORTHO.PROG ---
Last Taken Vital Signs: Vital Signs - Last Taken Temperature 97.1 F 07/13/18 11:11 Pulse Rate 74 07/13/18 11:11 Respiratory Rate 18 07/13/18 11:11 Blood Pressure 144/81 07/13/18 11:11 Pulse Ox 95 07/13/18 11:11 Subjective: Patent patient notes he does not have significant pains and feels that the foot looks better Objective: Examination of the left foot shows that still has one blister on the great toe appears to be mostly clear fluid filled little blood and this on the bottom plantar aspect of the toes he has some deep almost bruised look to the toes. The redness on the dorsal aspect of the toes is decreased and improved as well as a swelling plantar aspect of the foot in the arch still has several sporadic areas of almost a deeper bruising discoloration and a very superficial blisters of its clear. The main wound on the plantar aspect of the foot has an area of involvement there has calcium alginate on it may be 3 x 2 cm and the remaining tissue surrounding this may be 7 x 3.5 cm looks relatively healthy. He has a good sensory exam above the mid foot otherwise decreased sensation. No fluctuance or evidence of infection Bedside Blood Glucose Finger Stick Blood Glucose 248 Finger Stick Blood Glucose 197 Finger Stick Blood Glucose 264 Finger Stick Blood Glucose 266 Finger Stick Blood Glucose 267 Finger Stick Blood Glucose 232 Finger Stick Blood Glucose 269 Bedside Blood Glucose - Intervention Bedside Blood Glucose Start: 07/11/18 12:55 Freq: AC HS Status: Active Protocol: Activity Type Activity Date Activity User E-Sign Co-Sign Detail Recorded Client Recorded Date Recorded By Document 07/11/18 16:00 [id number] 07/11/18 16:17 [id number] Document 07/11/18 20:38 [id number] 07/11/18 20:38 [id number] Document 07/12/18 06:25 [id number] 07/12/18 06:30 [id number] Document 07/12/18 11:04 [id number] 07/12/18 11:05 [id number] Document 07/12/18 15:50 [id number] 07/12/18 15:51 [id number] Document 07/12/18 21:00 [id number] 07/12/18 21:27 [id number] Document 07/13/18 06:35 [id number] 07/13/18 06:38 [id number] Document 07/13/18 11:00 [id number] 07/13/18 11:11 [id number] 07/11/18 07/11/18 07/12/18 16:00 20:38 06:25 Blood Glucose Assessment Bedside Glucometer Cleaned Per Policy Yes Yes Yes Prior to Patient Use Bedside Blood Glucose (80-110) 269 H 232 H Action Taken Nurse Notified Nurse Notified Comment Comment Blood Glucose Result Reported To ( reported to RN Ines 07/11/18 07/12/18 include date/time) melanie 07/11/182029 reported to akanksha mtz 07/12/18 07/12/18 07/12/18 11:04 15:50 21:00 Blood Glucose Assessment Bedside Glucometer Cleaned Per Policy Yes Yes Yes Prior to Patient Use Bedside Blood Glucose (80-110) 267 H 266 H 264 H Action Taken Other (please comment) Comment oral control & lantus given Comment oral control and lantus given Blood Glucose Result Reported To ( 07/12/18 07/12/18 include date/time) reported to rn reported to akanksha mtz 07/13/18 07/13/18 06:35 11:00 Blood Glucose Assessment Bedside Glucometer Cleaned Per Policy Yes Yes Prior to Patient Use Bedside Blood Glucose (80-110) 197 H 248 H Action Taken Comment Comment Blood Glucose Result Reported To ( 07/13/18 07/13/18 include date/time) reported to rn reported to akanksha ness Vital Signs (24 hrs) Temp Pulse Pulse Resp BP Pulse Ox 07/13/18 11:11 97.1 F 74 18 144/81 95 07/13/18 06:38 98 F 80 17 148/87 93 07/13/18 04:00 97.7 F 76 14 115/71 95 07/13/18 01:00 98.3 F 82 20 121/66 93 07/12/18 19:43 97.4 F 80 16 135/78 95 07/12/18 15:51 97.7 F 81 17 138/77 97 Assessment: Left diabetic foot cellulitis and ulcers and transition portions improving Plan: I certainly think the acute cellulitis has responded nicely. I think the soft tissue damage with the pressure sores are still in transition. We are going to keep weight and stress off these. We are going to keep him on antibiotics at the current time I think we may be a to get him off the shortly but as far as the degree of damage very difficult to ascertain. He certainly has several areas of deep purple discoloration consistent with a more the deeper dermal damage as we've discussed and how deep it goes very difficult to ascertain he also has is in the arch in sporadic areas which is very unusual. 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 His sugars were marginally better this morning but now later in the morning her back to where they were previously and has very poor glucose control. We'll continue to follow this along.
[2018-07-13] MEDS ORDERED: Sodium Chloride 0.9% 50 ML ONE (11:44)
[2018-07-13] MEDS ORDERED: Insulin Glargine SoloStar Inj 100 UNIT/ML INSULN.PEN SUBCUT SCH (21:00)
[2018-07-14] MEDS: Cefepime Inj 2 GM in Sodium Chloride 0.9% 100 ML IV SCH (01:22)
[2018-07-14] MEDS: HEPARIN 5000 UNIT/1 ML SUBCUT SCH ×3 (04:06→20:22)
[2018-07-14] MEDS: Insulin Lispro Flexpen 300 UNIT/3 ML INSULN.PEN SUBCUT SCH ×3 (06:35→16:53)
[2018-07-14] MEDS: metFORMIN ER 500 MG TABLET PO SCH (08:03)
--- NOTE | 2018-07-14 11:36 | PT.PROG ---
Progress Note Progress Note: S.Patient stated that he used crutches a few years ago. O.Patient was fitted for and instructed on proper use and care of crutches. Patient ambulated with non weight bearing status x 30 feet around his room. A. Patient tolerated ambulation well this morning, he was able to ambulate with no pain or problems this morning. P. Continue POC.
[2018-07-14] MEDS ORDERED: Hold Metformin-See Instruction 1 EACH MIS PRN ×2 (12:11→12:25)
[2018-07-14 12:33] LABS: BASOPHILS # (AUTO) 0.02 10*3/UL; BASOPHILS % (AUTO) 0.3 % (0-1); EOSINOPHILS # (AUTO) 0.26 10*3/UL; EOSINOPHILS % (AUTO) 4.2 % (0-8); Hematocrit [HCT] 41.9 % (42.0-52.0); Hemoglobin [HGB] 14.4 g/dL (14.0-18.0); LYMPHOCYTES # (AUTO) 2.22 10*3/uL; MEAN CORPUSCULAR HEMOGLOBIN 32.1 PG (27-31); MEAN CORPUSCULAR HGB CONC 34.4 g/dL (33-37); MEAN CORPUSCULAR VOLUME 93.5 FL (80-90); MEAN PLATELET VOLUME 10.9 FL (7.4-12.2); MONOCYTES # (AUTO) 0.67 10*3/UL (0.3-0.8); MONOCYTES % (AUTO) 10.8 % (5-15); NEUTROPHILS # (AUTO) 3.02 10*3/UL; NEUTROPHILS % (AUTO) 48.5 % (50-80); RED BLOOD COUNT 4.48 10^6/uL (4.70-6.10)
[2018-07-14 12:35] LABS: PLATELET MORPHOLOGY COMMENT NORMAL MORPHOLOGY (NORM); RBC MORPHOLOGY COMMENT NORMAL MORPHOLOGY (NORM); WBC MORPHOLOGY COMMENT NORMAL MORPHOLOGY (NORM)
--- NOTE | 2018-07-14 12:36 | PDOC(PROG) ---
Interval History: Patient has no complaints no chest pain nausea vomiting no fever Objective : Data - Labs CBC and BMP: 07/12/18 04:09 07/11/18 11:00 Objective : Exam - Extremities Additional Extremities Exam Details: Toes are uncovered still dark areas of redness is less good sensation to move the foot and his toes Assessment and Plan - Patient Problems (1) Foot ulcer due to secondary DM Current Visit: Yes Status: Acute Comment: I spoke to Dr. Shane he will be looking at his foot today around 1: 30 with the wound care team the he will make further recommendations at that time continue antibiotics for now. I've called the infectious disease I'll call in Sergio Owen I am waiting to hear back. I will stop vancomycin continue cefepime we'll also order an MRI of his left foot to make sure there is no osteo Code(s): E13.621 - Other specified diabetes mellitus with foot ulcer; L97.509 - Non-pressure chronic ulcer of other part of unspecified foot with unspecified severity (2) Diabetes Current Visit: Yes Status: Acute Comment: I have increased his Lantus to 8 units tonight I started at 3 then 5 then 8 patient is guy to insulin did not want to cause hypoglycemia Code(s): E11.9 - Type 2 diabetes mellitus without complications Qualifiers: Diabetes mellitus complication status: with skin complications Diabetes mellitus complication detail: with foot ulcer
[2018-07-14] MEDS: Ertapenem Inj 1 GM in Sodium Chloride 0.9% 100 ML IV SCH (15:15)
--- NOTE | 2018-07-14 15:26 | DI ---
MRI LEFT FOOT SCAN, 07/14/2018 12:28 PM: Clinical History: Diabetic foot ulcer. Previous Exam: None at this facility. Technique: Axial, coronal, and sagittal pre-and postcontrast T1-weighted fat saturated sequences. Ax ial, coronal, and sagittal T2-weighted and STIR sequences. There is extensive subcutaneous edema over the dorsal aspect of the metatarsal bones. Fluid surrounds the great toe deep to the skin surface. Fluid is present in all of the metatarsophalangeal joints, b ut there is no abnormal bone signal pattern to indicate marrow edema. There is fluid in all of the mu scle bundles including the abductor hallucis, flexor digitorum brevis, quadratus plantae, and abducto r digiti minimi, the lumbricals, and the dorsal and plantar interosseous muscles.. With contrast, all of these muscles show marked enhancement. There is enhancement of the tendon sheaths of the flexor a nd extensor tendons. Readin. At this time, there is no evidence of acute osteomyelitis. 2. There is evidence of acute inflammation of all of the muscles and tendon sheaths of the foot as w ell as fluid in the subcutaneous space over the dorsal surface of the metatarsal bones. There is also fluid in all of the metatarsophalangeal joints as well as in the subcutaneous space around the great toe. With this extensive and diffuse involvement, an acute bacterial etiology is most likely.
--- NOTE | 2018-07-14 18:00 | PT.PROG ---
Progress Note Progress Note: S. Patient states that he doesn't have any pain or discomfort with the wound. O: Treatment consisted of removal of soiled dressing. Then cleansed with wound cleanser, Dr. Shane then came to inspect the wound. Wound was then redressed with calcium alginate over wound on pad of foot. Calmoseptine placed around wound edges. wrapped with unna boot and covered with kerlix and coban. A: Pt's toes do present purple, Wound has minimal drainage noted. the drainage does present dhiraj in color with no odor at time of dressing. Will continue to watch these areas closely and monitor. P: Continue per POC to assist with wound healing.
--- NOTE | 2018-07-14 18:25 | ORTHO.PROG ---
Last Taken Vital Signs: Vital Signs - Last Taken Temperature 97.3 F 07/14/18 16:13 Pulse Rate 75 07/14/18 16:13 Respiratory Rate 17 07/14/18 16:13 Blood Pressure 182/100 07/14/18 16:13 Pulse Ox 95 07/14/18 16:13 Subjective: Patient with no significant pain or discomfort Objective: Laboratory Results 07/14/18 07/14/18 Range/Units 04:12 04:12 WBC 6.22 (4.8-10.8) 10^3/uL RBC 4.48 L (4.70-6.10) 10^6/uL Hgb 14.4 (14.0-18.0) g/dL Hct 41.9 L (42.0-52.0) % MCV 93.5 H (80-90) FL MCH 32.1 H (27-31) PG MCHC 34.4 (33-37) g/dL RDW Std Deviation 42.7 (39-50) fL RDW Coeff of Rasheed 12.8 (11.5-14.5) % Plt Count 188 (140-350) 10*3/uL MPV 10.9 (7.4-12.2) FL Immature Gran % (Auto) 0.5 (0-5) % Neut % (Auto) 48.5 L (50-80) % Lymph % (Auto) 35.7 (10-50) % Sullivan % (Auto) 10.8 (5-15) % Eos % (Auto) 4.2 (0-8) % Baso % (Auto) 0.3 (0-1) % Immature Gran # (Auto) 0.03 10*3/UL Neut # (Auto) 3.02 10*3/UL Lymph # (Auto) 2.22 10*3/uL Sullivan # (Auto) 0.67 (0.3-0.8) 10*3/UL Eos # (Auto) 0.26 10*3/UL Baso # (Auto) 0.02 10*3/UL WBC Morphology Comment Normal morphology (NORM) Plt Morphology Comment Normal morphology (NORM) RBC Morph Comment Normal morphology (NORM) Vancomycin Trough 15.70 H (5.0-10.0) ug/ml Bedside Blood Glucose Finger Stick Blood Glucose 184 Finger Stick Blood Glucose 215 Finger Stick Blood Glucose 209 Finger Stick Blood Glucose 189 Finger Stick Blood Glucose 141 Finger Stick Blood Glucose 248 Finger Stick Blood Glucose 197 Finger Stick Blood Glucose 264 Finger Stick Blood Glucose 266 Finger Stick Blood Glucose 267 Finger Stick Blood Glucose 232 Bedside Blood Glucose - Intervention Bedside Blood Glucose Start: 07/11/18 12:55 Freq: AC HS Status: Active Protocol: Activity Type Activity Date Activity User E-Sign Co-Sign Detail Recorded Client Recorded Date Recorded By Document 07/11/18 20:38 [id number] 07/11/18 20:38 [id number] Document 07/12/18 06:25 [id number] 07/12/18 06:30 [id number] Document 07/12/18 11:04 [id number] 07/12/18 11:05 [id number] Document 07/12/18 15:50 [id number] 07/12/18 15:51 [id number] Document 07/12/18 21:00 [id number] 07/12/18 21:27 [id number] Document 07/13/18 06:35 [id number] [id number] 07/13/18 06:38 [id number] Document 07/13/18 11:00 [id number] 07/13/18 11:11 [id number] Document 07/13/18 15:59 [id number] 07/13/18 16:00 [id number] Document 07/13/18 20:21 [id number] [id number] 07/13/18 20:22 TVAJ994 Document 07/14/18 06:30 [id number] [id number] 07/14/18 06:34 [id number] Document 07/14/18 10:52 [id number] [id number] 07/14/18 10:54 [id number] Document 07/14/18 16:12 [id number] 07/14/18 16:13 [id number] 07/11/18 07/12/18 07/12/18 20:38 06:25 11:04 Blood Glucose Assessment Bedside Glucometer Cleaned Per Policy Yes Yes Yes Prior to Patient Use Bedside Blood Glucose (80-110) 232 H 267 H Action Taken Nurse Notified Comment Comment Blood Glucose Result Reported To ( Ines 07/11/18 07/12/18 07/12/18 include date/time) 2030 reported to rn reported to rn bibi mtz 07/12/18 07/12/18 07/13/18 15:50 21:00 06:35 Blood Glucose Assessment Bedside Glucometer Cleaned Per Policy Yes Yes Yes Prior to Patient Use Bedside Blood Glucose (80-110) 266 H 264 H 197 H Action Taken Other (please comment) Comment oral control & lantus given Comment oral control and lantus given Blood Glucose Result Reported To ( 07/12/18 07/13/18 include date/time) reported to rn reported to rn bibi ness 07/13/18 07/13/18 07/13/18 11:00 15:59 20:21 Blood Glucose Assessment Bedside Glucometer Cleaned Per Policy Yes Yes Yes Prior to Patient Use Bedside Blood Glucose (80-110) 248 H 141 H 189 H Action Taken Nurse Notified Comment Comment Blood Glucose Result Reported To ( 07/13/18 07/13/18 Essie 07/13 include date/time) reported to rn reported to rn 2019 thi mtz 07/14/18 07/14/18 07/14/18 06:30 10:52 16:12 Blood Glucose Assessment Bedside Glucometer Cleaned Per Policy Yes Yes Yes Prior to Patient Use Bedside Blood Glucose (80-110) 209 H 215 H 184 H Action Taken Comment Comment Blood Glucose Result Reported To ( 07/14/18 07/14/18 07/14/18 include date/time) reported to rn reported to rn reported to rn bibi mtz Vital Signs (24 hrs) Temp Pulse Pulse Resp BP BP Pulse Ox 07/14/18 16:13 97.3 F 75 17 182/100 95 07/14/18 10:54 97.5 F 76 17 155/91 92 07/14/18 06:27 97.7 F 76 18 151/87 93 07/14/18 04:08 97.3 F 76 12 124/74 95 07/14/18 01:00 97.3 F 78 18 121/72 93 07/13/18 20:10 98.0 F 85 18 162/88 93 With the foot dressing off. Generally looks better the areas on the plantar aspect of the great toe and some of the lesser toes has shrunk in size though a little bit more fluctuant in the middle may be consistent with a full-thickness type changes sharp. Far as the dorsal aspect of the foot is generally looks better the redness is gone down and has improved on the plantar aspect of the foot this is slowly consolidating getting smaller but it is full-thickness on the ball of the foot and hopefully this will continue to heal and condense. In the mid and upper arch area there is still some a deep purple discoloration though it seems like it's a little smaller than previously and has not expanded. He has no ascending lymphangitis. The MRI which was done today shows a lot of edema and swelling within the intrinsic musculature and also along the dorsal aspect of the foot some fluid within the metacarpal phalangeal joint region but no evidence of osteomyelitis. Assessment: A left foot diabetic foot ulcers and cellulitis improving better control of blood sugars recently. Patient given contrast and unfortunately will be unable to take metformin for a period time and hopefully his blood sugars will be within a reasonable range. Plan: Left foot cellulitis and ulcer formation continue with the wound care I think infectious diseases discussed IV antibiotics and at this point it doesn't look like there is any surgical intervention that is needed. I think we will need to continue to follow this closely moving forward and hopefully the areas of deep purple discoloration which seemed to be smaller than yesterday will continue to improve however there is an area of a little fluctuance or suspect that there are areas here that are full-thickness. The blisters remain on the great toe are still clear. These are away from the discolored areas. Pictures were taken for therapy.
[2018-07-14] MEDS ORDERED: Insulin Glargine SoloStar Inj 100 UNIT/ML INSULN.PEN SUBCUT SCH (21:00)
[2018-07-15] MEDS: HEPARIN 5000 UNIT/1 ML SUBCUT SCH ×2 (04:25→13:58)
[2018-07-15 07:05] VITALS: O2SAT 95
[2018-07-15] MEDS: Insulin Lispro Flexpen 300 UNIT/3 ML INSULN.PEN SUBCUT SCH ×2 (07:30→13:24)
[2018-07-15 11:27] VITALS: BP 137/90; RESP 12; TEMP 96.9
--- NOTE | 2018-07-15 13:22 | PT.PROG ---
Progress Note Progress Note: S: Pt. states he is doing well. States he is hoping to be able to go home this afternoon. O: Treatment consisted of wound care; removal of soiled dressing and cleansing the wound with sterile saline. Wound was then covered with mepilex and island dressing. Dr. Shane and Dr. Pratt both observed wound today. Toes were not covered. A: Pt's toes blood blister on first digit is improving. It has become more fluid with inner portion of blister still hardened. the rest of the digits remain unchanged. The wound on the base of his foot is healing very well. The skin is forming with callus formation noted. Possibly D/C today. P: Continue per POC to increase strength and activity tolerance. Sowmya Galaviz, [employer]
[2018-07-15] MEDS: Ertapenem Inj 1 GM in Sodium Chloride 0.9% 100 ML IV SCH (13:58)
--- NOTE | 2018-07-15 15:13 | ORTHO.PROG ---
Last Taken Vital Signs: Vital Signs - Last Taken Temperature 96.9 F 07/15/18 11:24 Pulse Rate 72 07/15/18 11:24 Respiratory Rate 12 07/15/18 11:24 Blood Pressure 137/90 07/15/18 11:24 Pulse Ox 95 07/15/18 11:24 Subjective: Patient with no pain left foot. Objective: Decrease cellulitis about the foot and ankle. This pretty much close to normal at the current time he still has ulcerations on the plantar aspect of his foot great toe and lesser toes. Motion has improved the areas of involvement of the discoloration have shrunk in size but the central areas feel more firm consistent with full-thickness type changes. The MRI which was done and showed no evidence of osteomyelitis and superficial into the dermal layers although dorsally did have a lot of edema but this tissue posteriorly looks healthy. Bedside Blood Glucose Finger Stick Blood Glucose 212 Finger Stick Blood Glucose 160 Finger Stick Blood Glucose 178 Finger Stick Blood Glucose 184 Finger Stick Blood Glucose 215 Finger Stick Blood Glucose 209 Finger Stick Blood Glucose 189 Finger Stick Blood Glucose 141 Finger Stick Blood Glucose 248 Finger Stick Blood Glucose 197 Finger Stick Blood Glucose 264 Finger Stick Blood Glucose 266 Bedside Blood Glucose - Intervention Bedside Blood Glucose Start: 07/11/18 12:55 Freq: AC HS Status: Active Protocol: Activity Type Activity Date Activity User E-Sign Co-Sign Detail Recorded Client Recorded Date Recorded By Document 07/12/18 15:50 [id number] 07/12/18 15:51 [id number] Document 07/12/18 21:00 [id number] [id number] 07/12/18 21:27 [id number] Document 07/13/18 06:35 [id number] [id number] 07/13/18 06:38 [id number] Document 07/13/18 11:00 [id number] [id number] 07/13/18 11:11 [id number] Document 07/13/18 15:59 [id number] [id number] 07/13/18 16:00 [id number] Document 07/13/18 20:21 NHQM201 [id number] 07/13/18 20:22 [id number] Document 07/14/18 06:30 [id number] [id number] 07/14/18 06:34 [id number] Document 07/14/18 10:52 [id number] [id number] 07/14/18 10:54 [id number] Document 07/14/18 16:12 [id number] [id number] 07/14/18 16:13 [id number] Document 07/14/18 20:29 [id number] [id number] 07/14/18 20:30 MBTB768 Document 07/15/18 06:58 [id number] [id number] 07/15/18 07:02 [id number] Document 07/15/18 11:00 [id number] EBJAZUK19 07/15/18 11:22 TJSW686 07/12/18 07/12/18 07/13/18 15:50 21:00 06:35 Blood Glucose Assessment Bedside Glucometer Cleaned Per Policy Yes Yes Yes Prior to Patient Use Bedside Blood Glucose (80-110) 266 H 264 H 197 H Action Taken Other (please comment) Comment oral control & lantus given Comment oral control and lantus given Blood Glucose Result Reported To ( 07/12/18 07/13/18 include date/time) reported to rn reported to rn bibi ness 07/13/18 07/13/18 07/13/18 11:00 15:59 20:21 Blood Glucose Assessment Bedside Glucometer Cleaned Per Policy Yes Yes Yes Prior to Patient Use Bedside Blood Glucose (80-110) 248 H 141 H 189 H Action Taken Nurse Notified Comment Comment Blood Glucose Result Reported To ( 07/13/18 07/13/18 Essie 07/13 include date/time) reported to rn reported to rn 2019 thi mtz 07/14/18 07/14/18 07/14/18 06:30 10:52 16:12 Blood Glucose Assessment Bedside Glucometer Cleaned Per Policy Yes Yes Yes Prior to Patient Use Bedside Blood Glucose (80-110) 209 H 215 H 184 H Action Taken Comment Comment Blood Glucose Result Reported To ( 07/14/18 07/14/18 07/14/18 include date/time) reported to rn reported to rn reported to rn bibi mtz 07/14/18 07/15/18 07/15/18 20:29 06:58 11:00 Blood Glucose Assessment Bedside Glucometer Cleaned Per Policy Yes Yes Yes Prior to Patient Use Bedside Blood Glucose (80-110) 178 H 160 H 212 H Action Taken WNL- No Action Nurse Notified Nurse Notified Taken Comment Comment Blood Glucose Result Reported To ( reported to rn reported to rn include date/time) Bibi 704 bibi 1122 Assessment: The left foot poorly controlled diabetes with multiple full-thickness skin compromise with a clear full-thickness ulcer plantar aspect of her foot. Plan: ID's recommendation is for a 12 week course of IV antibiotics before the recommendation in [place]. Patient will likely be discharged home he'll need to remain nonweightbearing on crutches come in for daily dressing changes we will check this on Friday morning in clinic and [facility] which are obviously has not really been very effective since his A1c is running in the mid 9 level that'll need to be tighter control of this. In the meantime we can get him set up with appropriate and swollen and monitoring system but this will need to [facility] by the [facility] so that it could be monitored closely. Discussed with the patient the importance of maintaining good glucose control and regular skin checks. He finally I think her realizes the importance of that and will do so. He'll follow-up with us as scheduled next
--- NOTE | 2018-07-15 15:47 | DCSUMMARY ---
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 He noticed on the date of admission that he had a sore on the top of his foot and on the plantar aspect of his left foot. He came in for evaluation and was found to have a cellulitis and was admitted for IV antibiotics. Orthopedics was consultative wound care was also administered. The patient's erythema significantly reduced, but he does have a full-thickness plantar ulcer and some areas that look bluish on his toes. He has an intact dorsalis pedis pulses however. Overall, his erythema and cellulitis improved during the hospital stay and an x-ray and an MRI scan of the foot were negative for osteomyelitis. 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 The wound itself was not cultured. Blood cultures were negative for 48 hours. We spoke with an infectious disease specialist recommended 2 weeks of IV Invanz therapy for this wound. We will arrange outpatient follow-up with [facility] infectious [facility] to continue to follow the wound and IV therapy and will arrange IV infusions of Invanz here daily at 4 PM for the next 2 weeks. He will be nonweightbearing and will continue to have wound care therapy with physical therapy department and follow orthopedics as well. The patient has problems with his diabetes in terms of not being well controlled. We increased the metformin 2000 mg twice a day and added Lantus as well. His blood sugars were under better control with that. I've recommended an aggressive continuous glucose monitoring outpatient system to watch blood sugars as closely as possible and I also recommended to see a dietitian to review those. I recommended that the patient also start lisinopril for blood pressure. He was noted to be hypertensive here, and although Norvasc was used in the hospital , the lisinopril might makes more sense with the patient's diabetes at this time. In addition I don't want any side effect of worsening edema in the lower extremities. Today, the patient denies any chest pain, denies any shortness breath, denies any nausea or vomiting. He would let really like to go home today as he is living locally in his trailer. Assessment and Plan: 1. As per discharge assessments noted 2. Disposition: Patient is discharged home. 3. Condition on discharge, stable and improved. 4. Diet: regular diet/diabetic diet 5. Activities: Patient can resume work but must be nonweightbearing on his left foot and he's been trained on crutches. 6. Follow-Up: 1. [facility] within the next [address] Shane, orthopedics on 07/17/2018 7. Medications at the Time of Discharge: Home Medications 3 Medication Instructions Recorded Confirmed Type Ertapenem Inj [INVanz Inj] 1 gm IV Q24H vial 07/15/18 Rx Insulin Glargine SoloStar Inj 8 unit SUBCUT BEDTIME #1 insuln.pen 07/15/18 Rx [Lantus SoloStar Inj] Lisinopril 10 mg PO DAILY #30 tab 07/15/18 Rx Metformin HCl [Glucophage] 1,000 mg PO BID #180 tab 07/15/18 Rx 8. Time, care, counseling and coordination of care for this discharge is greater than 30 minutes. Exam - Vitals Vital Signs: Vital Signs Temperature 96.9 F Temperature Source Temporal Artery Scan Pulse Rate [Pulse Oximeter 72 Left] Pulse Rate [Pulse Oximeter 75 Right] Pulse Rate 90 Respiratory Rate 12 Blood Pressure [Right Arm] 137/90 Blood Pressure [Left Arm] 130/81 Blood Pressure 142/88 Pulse Ox 95 Oxygen Delivery Method Room Air Height 5 ft 9 in Weight 220 lb 9.6 oz - General General Appearance: No Acute Distress, Cooperative - Head Head Exam: Normal Inspection, Normocephalic, Atraumatic - Eye Eye Exam: POSITIVE: No Scleral Icterus - ENT ENT Exam: POSITIVE: Mucous Membranes Moist - Respiratory Respiratory Exam: POSITIVE: Clear to Auscultation - Bilaterally, Breathing Non Labored - Cardiovascular Cardiovascular Exam: POSITIVE: RRR, No Murmur, No Clicks, No Gallops, No Rubs, No JVD - Extremities Extremities Exam: POSITIVE: No Clubbing Present, No Edema Present, Dosalis Pedis Pulses - Stong & Regular Additional Extremities Exam Details: Left foot plantar aspect has a fairly large 50 cent piece sized full-thickness plantar ulcer that is clean and not purulent. There is no surrounding erythema at this time. The toes appear to have what could be deemed cyanotic-appearing tissue with some surrounding redness and irritation but in my discussion with orthopedics and hospitalist yesterday significantly improved erythema and cellulitic signs have receded. Dorsalis pedis pulses is 2 over 4 and intact - Neurological Neurological Exam: POSITIVE: Alert, Oriented x 3, No Facial Droop, Speech Intact / Clear, Moves All Extremities Equally Data Peritnent Studies: 07/11/18 07/11/18 07/11/18 11:00 11:00 11:00 WBC Hgb Hct Plt Count Sodium 137 Potassium 4.5 Chloride 100 Carbon Dioxide 26 Anion Gap 11 BUN 15 Creatinine 0.8 BUN/Creatinine Ratio 18.75 Glucose 271 H Mean Blood Glucose 240.673 Hemoglobin A1c 9.81 H Calculated Osmolality 294.0 H Lactic Acid Calcium 9.0 Total Bilirubin 1.0 AST 24 ALT 28 Alkaline Phosphatase 137 H Troponin I C-Reactive Protein 4.3 H Total Protein 8.2 H Albumin 4.3 Globulin 3.9 Albumin/Globulin Ratio 1.10 L Vancomycin Trough 07/11/18 07/11/18 07/14/18 11:00 11:11 04:12 WBC Hgb Hct Plt Count Sodium Potassium Chloride Carbon Dioxide Anion Gap BUN Creatinine BUN/Creatinine Ratio Glucose Mean Blood Glucose Hemoglobin A1c Calculated Osmolality Lactic Acid 1.3 Calcium Total Bilirubin AST ALT Alkaline Phosphatase Troponin I < 0.012 C-Reactive Protein Total Protein Albumin Globulin Albumin/Globulin Ratio Vancomycin Trough 15.70 H 07/14/18 04:12 WBC 6.22 Hgb 14.4 Hct 41.9 L Plt Count 188 Sodium Potassium Chloride Carbon Dioxide Anion Gap BUN Creatinine BUN/Creatinine Ratio Glucose Mean Blood Glucose Hemoglobin A1c Calculated Osmolality Lactic Acid Calcium Total Bilirubin AST ALT Alkaline Phosphatase Troponin I C-Reactive Protein Total Protein Albumin Globulin Albumin/Globulin Ratio Vancomycin Trough Procedures: [address] [facility]. [facility] [place] [address] PH: DD: [phone] FAX: [phone] ~DIAGNOSTIC IMAGING REPORT~ Patient: JASWANT HERNANDEZ : 1965 Sex: M Age: 53 Exam Name: MRI Lower Extremity JASE Nunez Exam Date: 07/14/18 Report # : [id number] CPT Code: 67256 EMR/MR #: [id number] Ordering: AJIRO ADDISON Admiting: JAIRO ADDISON MD. Primary: NONE,NONE Attending: JAIRO ADDISON MD. Signed MRI LEFT FOOT SCAN, 07/14/2018 12:28 PM: Clinical History: Diabetic foot ulcer. Previous Exam: None at this facility. Technique: Axial, coronal, and sagittal pre-and postcontrast T1-weighted fat saturated sequences. Axial, coronal, and sagittal T2-weighted and STIR sequences. There is extensive subcutaneous edema over the dorsal aspect of the metatarsal bones. Fluid surrounds the great toe deep to the skin surface. Fluid is present in all of the metatarsophalangeal joints, but there is no abnormal bone signal pattern to indicate marrow edema. There is fluid in all of the muscle bundles including the abductor hallucis, flexor digitorum brevis, quadratus plantae, and abductor digiti minimi, the lumbricals, and the dorsal and plantar interosseous muscles.. With contrast, all of these muscles show marked enhancement. There is enhancement of the tendon sheaths of the flexor and extensor tendons. Readin. At this time, there is no evidence of acute osteomyelitis. 2. There is evidence of acute inflammation of all of the muscles and tendon sheaths of the foot as well as fluid in the subcutaneous space over the dorsal surface of the metatarsal bones. There is also fluid in all of the metatarsophalangeal joints as well as in the subcutaneous space around the great toe. With this extensive and diffuse involvement, an acute bacterial etiology is most likely. Dictated By: 07/14/18 1506 ALVARO DE LEON MD. Signed By: 07/14/18 1526 ALVARO DE LEON MD. [address] [facility] [place] [address] PH: DD: [phone] FAX: [phone] ~DIAGNOSTIC IMAGING REPORT~ Patient: JASWANT HERNANDEZ : 1965 Sex: M Age: 53 Exam Name: XR FOOT COMPLETE MIN 3VW Exam Date: 07/11/18 Report # : [id number] CPT Code: 56338 EMR/MR #: [id number] Ordering: JAIRO ADDISON Admiting: JAIRO ADDISON MD. Primary: NONE,NONE Attending: JAIRO ADDISON MD. Signed EXAM: XR Left Foot Complete, 3 or More Views CLINICAL HISTORY: Patient states sudden onset infection to the left foot. Swelling, redness, and peeling to the entire foot and ankle. There is a 2 inch oozing sore across the distal plantar surface of the foot and a black sore on the plantar surface of the 1st toe. 3 images. No priors.: TECHNIQUE: Frontal, lateral and oblique views of the left foot. COMPARISON: No relevant prior studies available. FINDINGS: Bones/joints: No evidence of osteomyelitis. Osseous structures intact. No acute fracture. No dislocation. Soft tissues: Soft tissue swelling. No radiopaque foreign body. IMPRESSION: 1. Soft tissue swelling. 2. No evidence of osteomyelitis. Osseous structures intact. Dictated By: Lee Fall MD Signed By: 07/11/18 1340 Lee Fall MD Patient Problems - Patient Problem List (1) Foot ulcer due to secondary DM Current Visit: Yes Status: Acute Code(s): E13.621 - Other specified diabetes mellitus with foot ulcer; L97.509 - Non-pressure chronic ulcer of other part of unspecified foot with unspecified severity Category: Medical (2) Cellulitis and abscess of foot Current Visit: Yes Status: Acute Code(s): L03.119 - Cellulitis of unspecified part of limb; L02.619 - Cutaneous abscess of unspecified foot Category: Medical (3) Diabetes Current Visit: Yes Status: Acute Code(s): E11.9 - Type 2 diabetes mellitus without complications Qualifiers: Diabetes mellitus type: type 2 Diabetes mellitus assisted insulin use: without assisted use Diabetes mellitus complication status: with skin complications Diabetes mellitus complication detail: with foot ulcer Qualified Code(s): E11.621 - Type 2 diabetes mellitus with foot ulcer; L97.509 - Non-pressure chronic ulcer of other part of unspecified foot with unspecified severity Category: Medical (4) Hypertension Current Visit: Yes Status: Acute Code(s): I10 - Essential (primary) hypertension Qualifiers: Hypertension type: essential hypertension Qualified Code(s): I10 - Essential (primary) hypertension Category: Medical
== END 2018-07-15 16:44 | disposition home or self-care (01) | DRG 603 ==
LOC: ER 10:31 → MED/SURG 12:53
PROVIDERS: ADMIT Internal Medicine; ATTEND Internal Medicine